=== PATIENT | male | born 1960 | race Caucasian/White ===

== ENCOUNTER 2019-03-12 08:17 | Inpatient (IN) | payer BC, OTHER ==
[2019-03-12] VITALS (7 sets, daily range): BP systolic 101–112; BP diastolic 62–77
[~2019-03-12] VITALS: Ht 172.7 cm; Wt 65.8 kg
--- OUTSIDE RECORDS SUMMARY | 2019-03-12 08:22 | XMS REPORT | Clinical Summary ---
Author Author [facility] Address Unknown Phone Unavailable Care Team Providers Care Tax Accountant Name Role Phone PCP Unavailable Allergies Not on File Medications Not on file Active Problems Not on file Encounters Care Team Description Date Type Specialty Ju Rosales MD 07/19/2018 Office Visit Wound Care Ju Rosales MD 07/11/2018 Office Visit Wound Care Ju Rosales MD 07/04/2018 Office Visit Wound Care Ju Rosales MD 06/27/2018 Office Visit Wound Care after 03/11/2018 Social History Date Tobacco Use Types Packs/Day Years Used Never Assessed Sex Assigned at Date Recorded Not on file Industry Job Start Date Occupation Not on file Not on file Not on file Travel End Travel History Travel Start No recent travel history available. Last Filed Vital Signs Not on file Plan of Treatment Not on file Results Not on fileafter 03/11/2018 Insurance Payer Benefit Subscriber ID Type Phone Address Plan / Group [employer]
--- OUTSIDE RECORDS SUMMARY | 2019-03-12 08:22 | XMS REPORT ---
[facility] Address Unknown Phone Unavailable Care Team Providers Care Financial Institution Manager Name Role Phone Unavailable Unavailable Payers Payer Name Policy Type Policy Number Effective Date Expiration Date Problems This patient has no known problems. Allergies, Adverse Reactions, Alerts Allergy Name Allergy Type Status Severity Reaction(s) Onset Date Inactive Date Treating Clinician Comments No Known Drug Allergies DA Active U 2019-01-18 00:00:00 No Known Allergies DA Active U 2018-12-17 00:00:00 No Known Allergies DA Active U 2018-04-25 00:00:00 Medications This patient has no known medications. Results Test Description Test Time Test Comments Text Results Atomic Results Result Comments - CT LOWER EXTRM W/O C RT 2018-11-20 16:15:00 Patient Name: STEPHEN ARTEAGA GENE Unit No: [id number] EXAMS: CPT CODE: [id number] CT LOWER EXTRM W/[place] [address] [place] SCAN RIGHT ANKLE WITH RECONSTRUCTION DIAGNOSIS: 1. There is internal fixation of fractures of the medial lateral malleolus. There is internal fixation of the medial malleolus fracture with orthopedic screw. There appears to be tenuous relatively immature bridging callus involving the posterior aspect of the medial malleolus fracture which appears to account for less than 10% of fracture surface area. Fracture fragments are well aligned. 2. The lateral malleolus fracture is solidly healed. COMMENT: 0.63 mm axial slices are obtained of the right ankle with reconstruction. Findings are as described above. at 1615 Reported and signed by: Tnude Henry MD CC: Sagar Burns MD Technologist: LOI COFFEY. RT(R) CTDI: DLP: Trnscrpt: 11/20/2018 ([id number]) [email or web address] [facility] NAME: STEPHEN ARTEAGA GENE [address] [facility] PHYS: [place] : 1960 A GE: 58 SEX: M [place] [id number] LOC: Y.RAD PHONE #: [phone] EXAM DATE: 11/20/2018 STATUS: REG CLI FAX #: [phone] RAD #: D/C DT PAGE 1 Signed Report Patient Name: STEPHEN ARTEAGA GENE Unit No: [id number] EXAMS: CPT CODE: [id number] CT LOWER EXTRM W/[place] [address] <Continued> Orig Print D/T: S: 11/20/2018 ([id number]) [facility] NAME: STEPHEN ARTEAGA GENE [address] [facility] PHYS: [place] : 1960 AGE: 58 SEX: M [place] [id number] LOC: Y.RAD PHONE #: [phone] EXAM DATE: 11/20/2018 STATUS: REG CLI FAX #: [phone] RAD #: D/C DT PAGE 2 Signed Report
[2019-03-12 09:25] LABS: BASOPHILS % 0.1 % (0.0-1.0); EOSINOPHILS % 0.1 % (0.0-6.0); HEMATOCRIT 24.6 % (38.2-49.6); HEMOGLOBIN 9.5 g/dL (14.0-18.0); LYMPHOCYTES # (AUTO) 0.7 (1.0-3.2); LYMPHOCYTES % 4.9 % (18.0-39.1); MEAN CORPUSCULAR HEMOGLOBIN 35.8 pg (28-32); MEAN CORPUSCULAR HGB CONC 38.6 g/dL (31-35); MEAN CORPUSCULAR VOLUME 92.8 fL (81-99); MONOCYTES # (AUTO) 1.1 (0.2-0.8); MONOCYTES % 7.2 % (4.4-11.3); NEUTROPHILS # (AUTO) 13.1 (2.1-6.9); PLATELET COUNT 212 x10e3/uL (140-360); RED BLOOD COUNT 2.65 x10e6/uL (4.3-5.7); RED CELL DISTRIBUTION WIDTH 12.4 % (11.7-14.4)
[2019-03-12 09:26] LABS: BILIRUBIN,URINE NEGATIVE (NEGATIVE); CLARITY,URINE SL CLOUDY (CLEAR); COLOR,URINE YELLOW (YELLOW); KETONES,URINE NEGATIVE (NEGATIVE); LEUKOCYTE ESTERASE ,URINE TRACE (NEGATIVE); NITRITE,URINE NEGATIVE (NEGATIVE); PROTEIN,URINE DIPSTICK 1+ (NEGATIVE); URINE UROBILINOGEN 0.2 mg/dL (0.2 - 1)
[2019-03-12 09:31] LABS: INR 0.98; PROTHROMBIN TIME 13.5 seconds (11.9-14.5)
[2019-03-12 09:32] LABS: PARTIAL THROMBOPLASTIN TIME 35.3 seconds (23.8-35.5)
[2019-03-12 09:43] LABS: ALBUMIN 3.6 g/dL (3.5-5.0); ANION GAP 18.7 mmol/L (8-16); CALCIUM 8.9 mg/dL (8.4-10.2); CREATININE, SERUM 1.35 mg/dL (0.72-1.25); POTASSIUM 3.7 mmol/L (3.5-5.1)
[2019-03-12] MEDS ORDERED: MULTIVITAMINS- 12 INJECTION 10 ML, FOLIC ACID MDV 5 MG, THIAMINE HCL INJ 100 MG in SODI... IV ONE (10:00)
[2019-03-12 10:10] LABS: BACTERIA,URINE MODERATE /HPF; EPITHELIAL CELLS,URINE FEW /LPF
--- NOTE | 2019-03-12 10:23 | Diagnostic Imaging Report ---
EXAMINATION: CHEST SINGLE (PORTABLE) INDICATION: Chest pain COMPARISON: None FINDINGS: TUBES and LINES: EKG leads overlie the thorax. LUNGS: The lungs are well inflated. There is left basilar opacity silhouetting the left trisha diaphragm. PLEURA: Left apical pneumothorax measuring up to 5 cm. Moderate left pleural effusion. No right pleural effusion. HEART AND MEDIASTINUM: The cardiomediastinal silhouette is normal in size and contour. BONES AND SOFT TISSUES: No acute fracture or dislocation. UPPER ABDOMEN: No free air under the diaphragm. IMPRESSION: Left hydropneumothorax. Patchy airspace opacities at the left lung base, more likely atelectasis than aspiration or pneumonia. Findings were communicated to Dr. Raj Brock at 10:19 AM on 03/12/2019. Signed by: Sabiha Peng MD on 03/12/2019 10:19 AM
[2019-03-12] MEDS ORDERED: SODIUM CHLORIDE 0.9% 1000ML 1,000 ML IV SCH ×3 (10:30→21:15)
--- NOTE | 2019-03-12 10:30 | NUR ---
FAMILY INTERMITTENTLY AT BEDSIDE, UPDATED ON STATUS. THEY SAID THEY HAD BEEN CALLING THE HOUSE AND HE WAS NOT ANSWERING AND HE TOLD THE NEIGBORS HE WAS TIRED.
[2019-03-12] MEDS ORDERED: DIATRIZOATE MEGL/DIATRIZOA SOD 30 ML BTL PO ONE (10:37)
--- NOTE | 2019-03-12 11:33 | NUR ---
BEDSIDE REPORT TO KENA Mendes. ISAC BAG INFUSING. NORMAL SALINE LITER COMPLETED. PATIENT AWAITING CT CHEST AND CHEST TUBE PLACEMENT. WILL BE PLACED ON HOSPITAL BED
--- NOTE | 2019-03-12 11:33 | NUR ---
REC'D BEDSIDE REPORT FOR CONTUITY OF CARE.
--- NOTE | 2019-03-12 12:43 | Diagnostic Imaging Report ---
EXAM: CT Abdomen and Pelvis WITH intravenous contrast INDICATION: Trauma COMPARISON: Chest radiograph of 03/12/2019 TECHNIQUE: Abdomen and pelvis were scanned utilizing a multidetector helical scanner from the lung base to the pubic symphysis after administration of IV contrast. Coronal and sagittal reformations were obtained. Routine protocol was performed. Scan was performed when during portal venous phase. IV CONTRAST: 100 mL of Isovue-370 ORAL CONTRAST: Gastrografin COMPLICATIONS: None RADIATION DOSE: Total DLP: 633.35 mGy*cm Dose modulation, iterative reconstruction, and/or weight based adjustment of the mA/kV was utilized to reduce the radiation dose to as low as reasonably achievable. FINDINGS: LOWER THORAX: Large left hemopneumothorax with pleural fluid measuring 41 Hounsfield units. There is a minimally displaced fracture of the left lateral seventh rib. There is an overlying hematoma and subcutaneous emphysema extending from the left lateral chest wall through the anterior midline chest wall. Scattered geographic groundglass opacities at the right lung base. No focal consolidation. HEPATOBILIARY: No focal hepatic lesions. No biliary ductal dilatation. The gallbladder appears unremarkable. SPLEEN: No splenomegaly. PANCREAS: No focal masses or ductal dilatation. ADRENALS: No adrenal nodules. KIDNEYS/URETERS: No hydronephrosis, stones, or solid mass lesions. PELVIC ORGANS/BLADDER: The bladder is distended and fluid-filled. PERITONEUM / RETROPERITONEUM: No free air or fluid. LYMPH NODES: No lymphadenopathy. VESSELS: Scattered atherosclerotic calcifications of the abdominal aorta and major branches. GI TRACT: No distention or wall thickening. BONES AND SOFT TISSUES: No suspicious lytic or blastic lesions. IMPRESSION: Large left hemopneumothorax with associated mildly displaced fracture of left lateral seventh rib. Overlying chest wall hematoma and subcutaneous emphysema. No acute traumatic injury in the abdomen or pelvis. Signed by: Sabiha Peng MD on 03/12/2019 12:40 PM
--- NOTE | 2019-03-12 13:05 | Diagnostic Imaging Report ---
EXAM: CT Chest WITH intravenous contrast 03/12/2019 11:54 AM INDICATION: COMPARISON: Chest radiograph of earlier the same day TECHNIQUE: Chest was scanned utilizing a multidetector helical scanner from the lung apex through the level of the adrenal glands following administration of IV contrast. Coronal and sagittal reformations were obtained. Routine protocol was performed. IV CONTRAST: 100mL Isovue 370 RADIATION DOSE: Total DLP: 633.35 mGy*cm. Dose modulation, iterative reconstruction, and/or weight based adjustment of the mA/kV was utilized to reduce the radiation dose to as low as reasonably achievable. COMPLICATIONS: None FINDINGS: LINES/ TUBES: None. LUNGS AND PLEURA: Large left hemopneumothorax with pleural fluid measuring 41 Hounsfield units. Mild centrilobular emphysema at the bilateral upper lobes. Scattered geographic groundglass opacities at the right lung base. No focal consolidation. HEART AND MEDIASTINUM: The thyroid gland is normal. No mediastinal, hilar or axillary lymphadenopathy. The heart is normal in size.. There is no pericardial effusion. Scattered atherosclerotic calcifications of the coronary arteries and thoracic aorta. UPPER ABDOMEN: Please see the report for the concurrently performed abdomen and pelvis CT. BONES: Left lateral sixth and seventh rib mildly displaced fractures. No other acute fracture or dislocation. No suspicious lytic or blastic lesions. SOFT TISSUES: There is a hematoma overlying the left lateral rib fractures and subcutaneous emphysema extending from the left lateral chest wall through the anterior midline chest wall. IMPRESSION: Large left hemopneumothorax with associated mildly displaced fractures of left lateral sixth and seventh ribs. Overlying chest wall hematoma and subcutaneous emphysema. Signed by: Sabiha Peng MD on 03/12/2019 1:02 PM
[2019-03-12 13:44] LABS: AMPHETAMINES SCREEN,URINE NEGATIVE (NEGATIVE); BENZODIAZEPINES SCREEN,URINE NEGATIVE (NEGATIVE); PHENCYCLIDINE SCREEN,URINE NEGATIVE (NEGATIVE)
--- NOTE | 2019-03-12 14:23 | NUR ---
CONSENT SIGNED FOR CHEST TUB INSERTION AND PLACED ON THE CHART
--- NOTE | 2019-03-12 14:50 | NUR ---
CHEST TUBE INSERTION COMPLETE AND PT TOLERATED WELL.
--- NOTE | 2019-03-12 15:34 | Diagnostic Imaging Report ---
EXAMINATION: CHEST SINGLE (PORTABLE) INDICATION: Chest tube placement COMPARISON: Chest CT of earlier the same day, chest radiograph of earlier the same day FINDINGS: TUBES and LINES: Interval placement of left chest tube, with tip projecting over the medial left hemithorax at the T6-7 interspace. LUNGS: The left lung remains partially collapsed. The right lung is well inflated. No focal consolidation or pulmonary edema. PLEURA: Persistent left pneumothorax with interval evacuation of left basal hemothorax. Extent of pneumothorax appears not significantly changed compared to the radiograph of 03/12/2019 at 9:24 AM. HEART AND MEDIASTINUM: The cardiomediastinal silhouette is normal in size and contour. BONES AND SOFT TISSUES: Left lateral sixth and seventh rib fractures seen on CT are not well appreciated on radiograph. UPPER ABDOMEN: No free air under the diaphragm. IMPRESSION: Interval placement of left chest tube and evacuation of left basal hemothorax. Persistent left pneumothorax, not significantly changed. Signed by: Sabiha Peng MD on 03/12/2019 3:31 PM
[2019-03-12] MEDS ORDERED: SODIUM CHLORIDE 0.9% 50ML 50 ML ONE (16:10)
[2019-03-12] MEDS ORDERED: IOPAMIDOL 370 MG/ML 200 ML INFUS..BTL INJ ONE (16:10)
[2019-03-12] MEDS ORDERED: FOLIC ACID 1 MG TAB PO SCH (16:15)
[2019-03-12] MEDS: CEFTRIAXONE SOD 1 GM/NS 50 ML 50 ML IV SCH (16:45)
--- NOTE | 2019-03-12 16:53 | Diagnostic Imaging Report ---
CT BRAIN WO HISTORY: Left upper extremity weakness COMPARISON: None. Technique: Noncontrast axial scans were obtained from skull base to the vertex. Coronal and sagittal reconstructions obtained from the axial data. One or more of the following dose reduction techniques were used: Automated exposure control, adjustment of the mA and/or kV according to patient size, and/or utilization of iterative reconstruction technique. DISCUSSION: Scalp/Skull: Unremarkable. Brain sulci: Mildly prominent. Ventricles: Compensatory dilatation. Extra-axial spaces: No masses or fluid collections. Carotid siphon calcifications are present. Parenchyma: Mild bilateral deep white matter hypodensity is likely chronic microvascular ischemic change. Otherwise, no masses, hemorrhage, or large vascular territory acute infarct. Dural sinuses: No abnormal densities. Sellar/Suprasellar region: Intact. Skull base: Intact. Incidental findings: Mild to moderate mucosal thickening is seen in the bilateral maxillary sinuses, left frontonasal recess, and left anterior ethmoid air cells. The right ocular lens is thinned. IMPRESSION: 1. No acute intracranial abnormalities. 2. Mild supratentorial chronic microvascular ischemic change. Mild generalized cerebral volume loss. Signed by: Dr. Lv Marroquin M.D. on 03/12/2019 4:49 PM
[2019-03-12] MEDS ORDERED: ONDANSETRON HCL INJ 2MG/ML 2ML 2 MG/ML VIAL IV PRN (17:15)
--- OUTSIDE RECORDS SUMMARY | 2019-03-12 17:27 | XMS REPORT | Clinical Summary ---
Author Author [facility] Address Unknown Phone Unavailable Care Team Providers Care Product Safety Expert Name Role Phone PCP Unavailable Allergies Not [...]
[2019-03-12] MEDS: THIAMINE HCL 100 MG TAB PO SCH (17:32)
[2019-03-12] MEDS: CHLORDIAZEPOXIDE 100 MG AMP IV SCH (17:33)
--- NOTE | 2019-03-12 17:34 | NUR ---
PATIENT CALLING ON THE PHONE DEMANDING INFORMATION, INFORMED CANNOT GIVE ANY INFORMATION OVER THE PHONE DUE SINCE I CANNOT VERIFY WHO SHE IS OVER THE PHONE. PATIENT VERY RUDE ON THE PHONE STATES SHE IS GOING TO REPORT ME SINCE I WONT GIVE HER INFORMATION OVER THE PHONE. PER ANDI, DR AGUIAR STATES TO NOT GIVE INFORMATION ON PATIENT TO , SHE IS DIVORSING PATIENT AND NEGLECTING PATIENT AT HOME. APTIENT WAS BROUGHT IN WITH EXCORIATION, WOUNDS ON BOTTOM, LARGE BRUISE TO LEFT SIDE OF CHEST WITH HAD TO HAVE CHEST TUBE DUE TO HEMOPEUMO THORAX. PATIENT IN VERY POOR CONDITION, CASE MANAGEMENT CONSULTED FOR NEGLECT AND ABUSE OF PATIENT BY PRODUCT DEMONSTRATOR WHO IS THE .
--- NOTE | 2019-03-12 17:37 | History and Physical ---
CHIEF COMPLAINT: The patient found lying on the floor. HISTORY OF PRESENT ILLNESS: This is a 58-year-old white man, who was brought to [facility] room via emergency medical services because he was found lying on his garage floor for unknown time. In the emergency room, the patient had chest x-ray done, which revealed left lower lobe airspace opacity as well as likely left-sided rib fractures. The patient subsequently underwent a CT of the chest with contrast that revealed a large left hemopneumothorax with mildly displaced fractures of the left 6th and 7th ribs. The patient underwent successful left-sided tube thoracostomy in the emergency room. The patient was also found to have white blood cell count of 15,000 with 87% segmenters. His hemoglobin 9.5 g/dL. The patient was found to be a BUN and creatinine of 33 and 1.35 respectively. Potassium 3.7, sodium 107, serum chloride was 69. Lactic acid was 15.7. The patient's creatine kinase level was elevated at 28,283. The patient's troponin I was normal at 0.017. The patient is found to have AST and ALT of 705 and 112 respectively. The patient's urine drug screen was negative. According to the mother and the present, the patient drinks alcohol in the form beer on a regular basis. The states he drinks beer all throughout the day. The patient be admitted to the intensive care unit for further evaluation and treatment. REVIEW OF SYSTEMS: GENERAL: The patient has lost approximately 15 to 20 pounds in the last few months. No fever or chills. HEENT: No headaches. No visual changes. CARDIOVASCULAR/RESPIRATORY. The patient complains of cough and complains of left-sided rib cage pain. GI: Nausea, vomiting, or constipation. : No UTI or BPH symptoms. NEUROMUSCULAR: No limb weakness or numbness. ALLERGIES: NO KNOWN DRUG ALLERGIES. PAST MEDICAL HISTORY: 1. Chronic alcoholism. 2. Tobacco abuse. 3. Hypertensive heart disease. 4. Alcoholic peripheral neuropathy. PAST SURGICAL HISTORY: Right ankle open reduction and fixation twice (1st in 2018 and 2nd a month ago). SOCIAL HISTORY: He is , lives with his . 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 He smokes tobacco heavily and drinks alcohol form beer all throughout the day. MEDICATIONS: Lisinopril/hydrochlorothiazide 20 mg/25 once daily. FAMILY HISTORY: Noncontributory. FAMILY HISTORY: Father had prostate cancer and his father also had diabetes mellitus. PHYSICAL EXAMINATION: GENERAL: He is awake, semi-alert. His altered mentation is dull. His and mother at bedside and they provide most of the history. VITAL SIGNS: 5 feet 8 inches, weight is 125 pounds, BMI is 20. Blood pressure 108/68, pulse 84, respiratory rate is 18, oxygen 98%, and temperature 98.6. INTEGUMENT: Skin is warm and dry. Slight pallor. No jaundice or diaphoresis. The patient has stage II sacral and buttock ulcers. The patient has a widespread wound on sacral/buttock ulcer, it appears to be stage II. HEENT: Clear. Moist mucous membranes. NECK: Supple. CARDIOVASCULAR: Distant heart sounds. Regular rhythm. LUNGS: The patient has a left-sided chest tube in place. He has rhonchi in bilateral lung perez. ABDOMEN: Soft. Normal bowel sounds. EXTREMITIES: No edema deformity. He has wounds and abrasions in his bilateral upper extremities as well as bilateral feet. NEUROLOGIC: Intact. No gross deficits appreciated. DIAGNOSES: 1. Sepsis, secondary to left-sided pneumonia. 2. Hyponatremia. 3. Chronic alcoholism. 4. Rhabdomyolysis. 5. Acute renal failure, secondary to acute tubular necrosis. 6. Tobacco abuse. 7. Left hemopneumothorax, secondary to displaced rib fractures. 8. Status post left tube thoracostomy placement. 9. Left 6th and 7th rib fractures. PLAN: 1. Intravenous fluids. 2. Follow electrolytes and renal function. 3. Intravenous antibiotics. 4. Follow creatine kinase level. 5. We will prescribe scheduled oral Librium to help offset acute alcohol withdrawal symptoms. 6. We will supplement the patient with folic acid, and thiamine since he is a chronic alcoholic. 7. Admit the patient to intensive care unit, so we he can followed closely overnight since he has profound hyponatremia. 8. Wound Care consult for the patient's sacral/buttock wounds. I spent 75 minutes in the care of this intensive care unit patient. MD ALLEN Clinton/ANNE /[id number] FELISHA
[2019-03-12] MEDS ORDERED: CHLORDIAZEPOXIDE HCL 25 MG CAP PO SCH (18:00)
--- NOTE | 2019-03-12 18:22 | NUR ---
called and spoke with dr. zamora for new consult.
[2019-03-12] MEDS: AZITHROMYCIN 500MG/NS 250 ML 250 ML IV SCH (18:40)
--- NOTE | 2019-03-12 18:46 | NUR ---
DR. MENDEZ IN WITH PT AT THIS TIME
--- NOTE | 2019-03-12 19:15 | NUR ---
Received from ER via stretcher, awake and alert. multiple bruises in various states of healing noted to arms legs and torso. Suspected DTI to Bilateral elbows, suspected DTI to Bilateral heels, Suspected DTI with small stage II open areas to sacrum, suspected DTI with stage II open area to left hip. Voided small amount in urinal and still feels need to void. Urinary catheter inserted with 960 cc dark sam urine out.
--- NOTE | 2019-03-12 19:38 | NUR ---
Consult called to Dr. Perez, Dr Woodard returned call and orders for stat BMP received
[2019-03-12 20:21] LABS: ANION GAP 14.2 mmol/L (8-16); BLOOD UREA NITROGEN 28 mg/dL (7-26); BUN/CREATININE RATIO 35 (6-25); CALCIUM 7.9 mg/dL (8.4-10.2); CARBON DIOXIDE 21 mmol/L (22-29); CHLORIDE 82 mmol/L (98-107); EST GLOMERULAR FILTRATION RATE > 60 ML/MIN (60-); GLUCOSE 94 mg/dL (74-118); POTASSIUM 3.2 mmol/L (3.5-5.1)
[2019-03-12 20:25] LABS: SODIUM 114 mmol/L (136-145)
--- NOTE | 2019-03-12 20:33 | NUR ---
call placed for Dr Woodard regarding bmp results, awaiting return call
--- NOTE | 2019-03-12 21:03 | NUR ---
No return call received from Dr Woodard, second call placed at this time
[2019-03-12] MEDS ORDERED: DESMOPRESSIN ACETATE 4 MCG/ML VIAL IV ONE (21:15)
--- NOTE | 2019-03-12 21:15 | NUR ---
DR MORALES RETURNED CALL, NEW ORDERS RECEIVED
[2019-03-12] MEDS ORDERED: DEXTROSE 5% 500 ML IV ONE (22:00)
[2019-03-12] MEDS ORDERED: POTASSIUM CHLORIDE 20MEQ/100ML 200 ML IV ONE (22:00)
[2019-03-13] VITALS (26 sets, daily range): BP systolic 83–115; BP diastolic 48–65
[2019-03-13 01:02] LABS: ANION GAP 12.3 mmol/L (8-16); BLOOD UREA NITROGEN 23 mg/dL (7-26); BUN/CREATININE RATIO 31 (6-25); CALCIUM 7.8 mg/dL (8.4-10.2); CARBON DIOXIDE 23 mmol/L (22-29); CHLORIDE 83 mmol/L (98-107); CREATININE, SERUM 0.74 mg/dL (0.72-1.25); EST GLOMERULAR FILTRATION RATE > 60 ML/MIN (60-); GLUCOSE 138 mg/dL (74-118); POTASSIUM 3.3 mmol/L (3.5-5.1)
[2019-03-13 01:06] LABS: SODIUM 115 mmol/L (136-145)
--- NOTE | 2019-03-13 01:14 | NUR ---
LAB RESULTS REPORTED TO DR GARCIA, NEW ORDERS RECEIVED
[2019-03-13] MEDS: DEXTROSE 5% 1,000 ML IV SCH ×3 (01:15→03:35)
--- NOTE | 2019-03-13 02:20 | Consultation ---
DATE OF CONSULTATION: Pulmonary Consultation REASON FOR THE CONSULT: Chest tube management. HISTORY OF PRESENT ILLNESS: Mr. Whaley is a 58-year-old male. He does not remember that how he ended up in the emergency room, however, he was found on his garage floor for unknown time. He had a chest x-ray done, which revealed large right-sided effusion and pneumothorax. The patient underwent a large left hydropneumothorax. The patient underwent a chest tube placement. He has a history of alcohol use and smoking. Family is at the bedside. The patient is awake, alert, following commands. Chest x-ray is improved after chest tube placement. REVIEW OF SYSTEMS: GENERAL: Denies any fever or chills and denies any head trauma. ENT: Denies any earache. CVS: Denies any severe chest pain, shortness of breath. Rest of the review of systems are negative except as noted in the HPI. PAST MEDICAL HISTORY: Alcohol abuse, tobacco use, hypertension. PAST SURGICAL HISTORY: Right ankle open reduction and internal fixation twice. FAMILY AND SOCIAL HISTORY: He is , lives with his . 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 He smokes and drinks heavily. PHYSICAL EXAMINATION: VITAL SIGNS: Temperature 98.6, pulse of 81, blood pressure 111/67, respiratory rate of 18. HEENT: Head is atraumatic, normocephalic. NECK: Supple. CHEST: Bruise on the left side and has a left-sided chest tube. Both side air entry is better. ABDOMEN: Soft, nontender. EXTREMITIES: No pedal edema. NEUROLOGIC: Awake and alert. LABORATORY DATA: [place] [address], hemoglobin 9.5, platelets 212. Chemistry; sodium 107, potassium 3.7, chloride 69. BUN 32, creatinine 1.35. CK 28,283, CK-MB 487, total bilirubin 1.7, AST 705, ALT 112. ASSESSMENT/PLAN: Mr. Whaley is a 58-year-old male, who presented to the emergency room with complaints after a fall resulting in hydropneumothorax status post chest tube placement. The patient has sodium of 107, possibility of seizure from low sodium. CURRENT PROBLEMS: 1. Hyponatremia. 2. Chronic alcoholism. 3. Status post fall. 4. Hydropneumothorax. 5. Left 6th and 7th rib fracture. PLAN: 1. The patient will continue to have the chest tube. I will keep the chest tube. It has drained, almost 1200 mL of ya blood. 2. The patient is in rhabdomyolysis. IV hydration will be continued. 3. Recommend consulting Nephrology for severe hyponatremia. IV hydration should be done cautiously for over-correction. Hence, we will need Nephrology input. Critical care time spent, 50 minutes. MD CARYL Duran/ANNE /[id number]
[2019-03-13] MEDS: CHLORDIAZEPOXIDE 100 MG AMP IV SCH ×2 (03:34)
[2019-03-13] MEDS: CEFTRIAXONE SOD 1 GM/NS 50 ML 50 ML IV SCH ×2 (04:11→16:32)
[2019-03-13 05:22] LABS: BASOPHILS % 0.1 % (0.0-1.0); EOSINOPHILS % 0.4 % (0.0-6.0); HEMATOCRIT 21.4 % (38.2-49.6); LYMPHOCYTES # (AUTO) 0.7 (1.0-3.2); LYMPHOCYTES % 6.3 % (18.0-39.1); MEAN CORPUSCULAR HEMOGLOBIN 35.1 pg (28-32); MEAN CORPUSCULAR HGB CONC 37.4 g/dL (31-35); MEAN CORPUSCULAR VOLUME 93.9 fL (81-99); MONOCYTES # (AUTO) 0.8 (0.2-0.8); MONOCYTES % 7.4 % (4.4-11.3); NEUTROPHILS # (AUTO) 9.6 (2.1-6.9); NEUTROPHILS % 85.1 % (38.7-80.0); PLATELET COUNT 183 x10e3/uL (140-360); RED BLOOD COUNT 2.28 x10e6/uL (4.3-5.7); RED CELL DISTRIBUTION WIDTH 12.6 % (11.7-14.4)
[2019-03-13 05:52] LABS: ALANINE AMINOTRANSFERASE 94 IU/L (0-55); ALBUMIN 2.5 g/dL (3.5-5.0); ALBUMIN/GLOBULIN RATIO 0.9 (0.8-2.0); ALKALINE PHOSPHATASE 73 IU/L (40-150); ANION GAP 11.4 mmol/L (8-16); BLOOD UREA NITROGEN 19 mg/dL (7-26); BUN/CREATININE RATIO 29 (6-25); CALCIUM 7.8 mg/dL (8.4-10.2); CARBON DIOXIDE 24 mmol/L (22-29); CHLORIDE 82 mmol/L (98-107); CREATININE, SERUM 0.66 mg/dL (0.72-1.25); EST GLOMERULAR FILTRATION RATE > 60 ML/MIN (60-); GLUCOSE 153 mg/dL (74-118); MAGNESIUM 2.1 MG/DL (1.3-2.1); POTASSIUM 3.4 mmol/L (3.5-5.1)
[2019-03-13 06:00] LABS: CREATINE KINASE 7881 IU/L (30-200)
[2019-03-13 06:01] LABS: SODIUM 114 mmol/L (136-145)
[2019-03-13] MEDS ORDERED: POTASSIUM CHLORIDE 20MEQ/15ML UDC PO ONE (06:15)
--- NOTE | 2019-03-13 07:47 | Diagnostic Imaging Report ---
EXAMINATION: CHEST SINGLE (PORTABLE) INDICATION: Pneumothorax COMPARISON: Chest radiograph 03/12/2019. FINDINGS: TUBES and LINES: Left-sided chest tube in unchanged position. LUNGS: Unchanged patchy opacities in the left greater than right lung bases. No new consolidation. No evidence of pulmonary edema. PLEURA: Interval decrease in size of left basilar pneumothorax. HEART AND MEDIASTINUM: Unremarkable cardiomediastinal silhouette. Atherosclerotic calcification of the aortic arch. BONES AND SOFT TISSUES: Left lateral sixth and seventh rib fractures seen on CT are not well appreciated on radiograph. Small amount of subcutaneous air along the left lateral chest wall. UPPER ABDOMEN: No free air under the diaphragm. IMPRESSION: Left-sided chest tube with interval decrease in size of left basilar pneumothorax. Signed by: Dr. Rajiv Parkinson MD on 03/13/2019 7:43 AM
[2019-03-13] MEDS ORDERED: THIAMINE HCL INJ 100 MG in SODIUM CHLORIDE 0.9% 50ML 50 ML IV SCH (09:00)
[2019-03-13] MEDS ORDERED: THIAMINE HCL INJ 100 MG/ML 2ML VIAL IV SCH (09:00)
[2019-03-13 09:29] LABS: ANION GAP 8.8 mmol/L (8-16); BLOOD UREA NITROGEN 16 mg/dL (7-26); BUN/CREATININE RATIO 26 (6-25); CALCIUM 7.8 mg/dL (8.4-10.2); CARBON DIOXIDE 25 mmol/L (22-29); CHLORIDE 82 mmol/L (98-107); CREATININE, SERUM 0.62 mg/dL (0.72-1.25); EST GLOMERULAR FILTRATION RATE > 60 ML/MIN (60-); GLUCOSE 155 mg/dL (74-118); POTASSIUM 3.8 mmol/L (3.5-5.1)
[2019-03-13] MEDS ORDERED: POTASSIUM CHLORIDE 10MEQ EA PO ONE (09:30)
[2019-03-13 09:31] LABS: SODIUM 112 mmol/L (136-145)
[2019-03-13] MEDS: SODIUM CHLORIDE 0.9% 1000ML 1,000 ML IV SCH (09:51)
[2019-03-13] MEDS: THIAMINE HCL 100 MG TAB PO SCH (10:26)
--- NOTE | 2019-03-13 10:42 | NUR ---
WOUND CARE INITIAL CONSULTATION. 58 YEAR OLD MALE ADMITTED TO [facility] WITH DX OF SEVERE HYPONATREMIA WITH LETHARGY AND RHABDOMYOLYSIS. HEAD TO TOE SKIN ASSESSMENT PERFORMED TODAY, PT STATES HE HAD A FALL AT HOME FEW DAYS AGO. UPON ASSESSMENT PT PRESENTS WITH A 6X2X0.1CM 100% GRANULAR ABRASION TO LEFT ELBOW. LEFT LATERAL AC AND WRIST PRESENT WITH A HEALING 2X1CM ABRASION. RIGHT ELBOW PRESENTS WITH A 90D23TT OF DISCOLORATION AND SOME AREAS OF DTI ARE PRESENT. 1X1 CM HEALING ABRASION TO LEFT KNEE. BILATERAL HEELS PRESENT WITH BLANCHABLE REDNESS. [id number] STAGE II PRESSURE ULCER IS NOTED TO SACRUM AND BILATERAL BUTTOCKS. CHEST TUBE TO RIGHT CHEST. PT EDUCATED ON PLAN OF CARE, TREATMENT AND PRESSURE RELIEF TO THE AFFECTED AREAS. LABS: WBC: 11.24 GLUCOSE: 153 ALB: 2.5 RECOMMENDATIONS: PLACE PT ON ALTERNATING LOW AIR LOSS MATTRESS. PROVIDE PT WITH BILATERAL HEEL PROTECTORS AND PILLOW SUSPENSIONS TURN PT EVERY TWO HOURS AND PRN. CLEAN LEFT ELBOW WITH NS, APPLY BACTROBAN AND COVER WITH XEROFORM GAUZE, 4X4 GAUZE, KERLIX AND TAPE. CHANGE DRESSING DAILY. APPLY BACTROBAN TO LEFT LATERAL AC, LEFT WRIST, AND LEFT KNEE ABRASIONS, LEAVE OPEN TO AIR AND MONITOR DAILY. APPLY A FOAM DRESSING IF NEEDED. APPLY VENELEX TO RIGHT ELBOW AND COVER WITH FOAM DRESSING. CHANGE DAILY. APPLY ALLEVYN HEEL FOAM TO BILATERAL HEELS AND MONITOR DAILY. APPLY VENELEX OINTMENT BID TO SACRUM AND BILATERAL BUTTOCKS BID AND COVER WITH FOAM DRESSING. THANKS FOR THIS CONSULTATION. Addendum: 03/13/19 at 1103 by Jeane Kee RN Amended: Links added.
[2019-03-13] MEDS: CHLORDIAZEPOXIDE HCL 25 MG CAP PO SCH ×2 (12:10→18:52)
[2019-03-13 16:05] LABS: BLOOD UREA NITROGEN 13 mg/dL (7-26); BUN/CREATININE RATIO 22 (6-25); CALCIUM 7.9 mg/dL (8.4-10.2); CARBON DIOXIDE 24 mmol/L (22-29); CHLORIDE 84 mmol/L (98-107); CREATININE, SERUM 0.58 mg/dL (0.72-1.25); EST GLOMERULAR FILTRATION RATE > 60 ML/MIN (60-); GLUCOSE 132 mg/dL (74-118)
[2019-03-13 16:07] LABS: SODIUM 116 mmol/L (136-145)
[2019-03-13] MEDS: AZITHROMYCIN 500MG/NS 250 ML 250 ML IV SCH (17:36)
[2019-03-13] MEDS: FOLIC ACID 1 MG TAB PO SCH (18:52)
--- NOTE | 2019-03-13 22:22 | Consultation ---
DATE OF CONSULTATION: REASON FOR CONSULT: Severe hyponatremia and rhabdomyolysis. HISTORY OF PRESENT ILLNESS: This is a 58-year-old male, who was found down by his family. The patient had right-sided effusion and pneumothorax. PAST MEDICAL HISTORY: Severe alcohol abuse at least 10 beers a day, tobacco abuse, and hypertension. PAST SURGICAL HISTORY: Right ankle open reduction and internal fixation twice. 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 Drinks heavily. REVIEW OF SYSTEMS: Unable to get from the patient. PHYSICAL EXAMINATION: GENERAL: Alert, goes back to sleep quickly. HEENT: Pupils are equal and reactive to light and accommodation. NECK: No JVD. No bruit. LUNGS: No rhonchi. No rales. HEART: Regular rate and rhythm. No S3, no S4. ABDOMEN: Nontender and nondistended. No hepatomegaly or splenomegaly. EXTREMITIES: No clubbing, no cyanosis, no edema. NEUROLOGICAL: Cranial nerves II through XII grossly intact. Sensation and motor intact. VITAL SIGNS: Blood pressure 99/61. LABORATORY DATA: White count 11.2, hemoglobin 8, and hematocrit 21.4. Sodium now at 112, chloride 82, glucose 155, and albumin 2.5. Urinalysis, positive blood. Chest x-ray, left-sided chest tube, abdominal CT. Interval placement of left chest tube. Upper abdomen, no free air. ASSESSMENT AND PLAN: 1. Severe hyponatremia. This is most likely secondary to beer potomania. The patient is currently on normal saline, we will increase his saline and continue checking his labs that is most likely secondary to alcohol. We will check also serum osmolality, serum uric acid, and urine osmolality. 2. Severe malnutrition with an albumin of 2.5, this most likely secondary to alcohol. 3. AST and ALT are up again that is another sign of alcohol use. 4. CPK, status post fall with a CPK of 7881. Currently on IV fluids. We will continue volume repletion. Elliot Mantilla MD MA/ANNE /[id number]
[2019-03-14] VITALS (24 sets, daily range): BP systolic 88–124; BP diastolic 49–105
[2019-03-14] MEDS: CHLORDIAZEPOXIDE HCL 25 MG CAP PO SCH ×4 (00:11→21:48)
[2019-03-14] MEDS: SODIUM CHLORIDE 0.9% 1000ML 1,000 ML IV SCH ×2 (01:38→19:07)
[2019-03-14] MEDS: CEFTRIAXONE SOD 1 GM/NS 50 ML 50 ML IV SCH ×2 (04:15→16:27)
--- NOTE | 2019-03-14 05:00 | NUR ---
Cleaned for mod soft brown stool.
[2019-03-14 05:20] LABS: BASOPHILS % 0.1 % (0.0-1.0); EOSINOPHILS # (AUTO) 0.1 (0.0-0.4); LYMPHOCYTES # (AUTO) 0.8 (1.0-3.2); LYMPHOCYTES % 9.1 % (18.0-39.1); MEAN CORPUSCULAR HEMOGLOBIN 35.5 pg (28-32); MEAN CORPUSCULAR HGB CONC 36.4 g/dL (31-35); MEAN CORPUSCULAR VOLUME 97.6 fL (81-99); MONOCYTES # (AUTO) 0.7 (0.2-0.8); NEUTROPHILS # (AUTO) 6.9 (2.1-6.9); NEUTROPHILS % 80.8 % (38.7-80.0); PLATELET COUNT 183 x10e3/uL (140-360); RED BLOOD COUNT 2.11 x10e6/uL (4.3-5.7); RED CELL DISTRIBUTION WIDTH 13.1 % (11.7-14.4)
[2019-03-14 05:28] LABS: HEMATOCRIT 20.6 % (38.2-49.6); HEMOGLOBIN 7.5 g/dL (14.0-18.0)
[2019-03-14 05:32] LABS: ALANINE AMINOTRANSFERASE 81 IU/L (0-55); ALBUMIN 2.3 g/dL (3.5-5.0); ALBUMIN/GLOBULIN RATIO 0.9 (0.8-2.0); ALKALINE PHOSPHATASE 70 IU/L (40-150); ANION GAP 10.8 mmol/L (8-16); BLOOD UREA NITROGEN 8 mg/dL (7-26); BUN/CREATININE RATIO 15 (6-25); CARBON DIOXIDE 25 mmol/L (22-29); CHLORIDE 89 mmol/L (98-107); CREATINE KINASE 3885 IU/L (30-200); CREATININE, SERUM 0.55 mg/dL (0.72-1.25); EST GLOMERULAR FILTRATION RATE > 60 ML/MIN (60-); GLUCOSE 103 mg/dL (74-118); POTASSIUM 3.8 mmol/L (3.5-5.1); SODIUM 121 mmol/L (136-145)
--- NOTE | 2019-03-14 07:23 | Diagnostic Imaging Report ---
Examination: Single AP view of the chest. COMPARISON: 03/13/2019 INDICATION: Chest tube placement, pneumonia DISCUSSION: Left chest tube is unchanged in position. Trace residual apical pneumothorax. Hazy opacities in the left lower lung compatible with contusion/atelectasis. Right lung is grossly clear. Stable cardiomediastinal contour with atherosclerotic calcification of the aortic arch. Multiple left-sided rib fractures seen to better advantage on comparison CT 03/12/2019. IMPRESSION: Stable left-sided chest tube with trace residual pneumothorax. Persistent left lower lung zone opacities compatible with contusion and/or atelectasis in the setting of overlying rib fractures. Signed by: Dr. Sagar Cuenca M.D. on 03/14/2019 7:20 AM
[2019-03-14] MEDS: MUPIROCIN 2% OINT 22 GM TUBE TOP SCH (09:00)
[2019-03-14] MEDS: BALSAM PERU/CASTOR OIL 60 GM OINT...G. TP SCH (09:00)
[2019-03-14] MEDS: FOLIC ACID 1 MG TAB PO SCH ×2 (10:30→17:00)
[2019-03-14] MEDS: THIAMINE HCL 100 MG TAB PO SCH (10:30)
--- NOTE | 2019-03-14 10:50 | NUR ---
ASSESSMENT: Spiritual concern Pt's mother hopeful concerning son's illness. Pt's mother describes signs of improvement. Intervention: Provided hospitality and information on how to reach roustabout head, if needed. Outcome: Pt's mother invited roustabout head to continue to visit. Will follow as able. SAMANTHA COLE Graphic Art Sales Representative Spiritual Care Department O: [phone] Pager: [phone] ([phone] number calling from)
[2019-03-14] MEDS: NYSTATIN 100,000 UNITS/GM CRM 30GM TUBE TOP SCH ×2 (14:03→17:00)
[2019-03-14] MEDS: AZITHROMYCIN 500MG/NS 250 ML 250 ML IV SCH ×2 (17:30→20:00)
[2019-03-14 18:08] LABS: OSMOLALITY,SERUM OSMOMETER 241 mOsmol/kg (275-295)
--- NOTE | 2019-03-14 18:20 | NUR ---
while discussing pt care with patients sister, pts estranged listening over sisters shoulder. was asked to return to room so i could discuss pt care with his sister. yelled out "I am his " informed pts she was not on his list of authorization for information sheet. pts went back in room crying, yelling out that she had never heard of such and grabbed personal belongings and stormed off of ICU unit.
[2019-03-15] VITALS (25 sets, daily range): BP systolic 97–136; BP diastolic 52–79
[2019-03-15] MEDS: SODIUM CHLORIDE 0.9% 1000ML 1,000 ML IV SCH ×2 (02:55→20:09)
[2019-03-15] MEDS: CEFTRIAXONE SOD 1 GM/NS 50 ML 50 ML IV SCH ×2 (04:30→20:09)
[2019-03-15 05:02] LABS: BASOPHILS % 0.1 % (0.0-1.0); EOSINOPHILS # (AUTO) 0.1 (0.0-0.4); EOSINOPHILS % 0.9 % (0.0-6.0); HEMATOCRIT 20.1 % (38.2-49.6); HEMOGLOBIN 7.2 g/dL (14.0-18.0); LYMPHOCYTES # (AUTO) 0.7 (1.0-3.2); LYMPHOCYTES % 7.6 % (18.0-39.1); MEAN CORPUSCULAR HEMOGLOBIN 35.6 pg (28-32); MEAN CORPUSCULAR HGB CONC 35.8 g/dL (31-35); MEAN CORPUSCULAR VOLUME 99.5 fL (81-99); MONOCYTES # (AUTO) 0.8 (0.2-0.8); MONOCYTES % 9.1 % (4.4-11.3); NEUTROPHILS # (AUTO) 7.3 (2.1-6.9); NEUTROPHILS % 81.6 % (38.7-80.0); PLATELET COUNT 171 x10e3/uL (140-360); RED BLOOD COUNT 2.02 x10e6/uL (4.3-5.7); RED CELL DISTRIBUTION WIDTH 13.4 % (11.7-14.4)
[2019-03-15 05:23] LABS: ALANINE AMINOTRANSFERASE 85 IU/L (0-55); ALBUMIN 2.3 g/dL (3.5-5.0); ALBUMIN/GLOBULIN RATIO 0.8 (0.8-2.0); ALKALINE PHOSPHATASE 67 IU/L (40-150); ANION GAP 10.7 mmol/L (8-16); BLOOD UREA NITROGEN 6 mg/dL (7-26); BUN/CREATININE RATIO 10 (6-25); CALCIUM 8.3 mg/dL (8.4-10.2); CARBON DIOXIDE 26 mmol/L (22-29); CHLORIDE 93 mmol/L (98-107); CREATINE KINASE 4187 IU/L (30-200); CREATININE, SERUM 0.59 mg/dL (0.72-1.25); EST GLOMERULAR FILTRATION RATE > 60 ML/MIN (60-); GLUCOSE 103 mg/dL (74-118); POTASSIUM 3.7 mmol/L (3.5-5.1); SODIUM 126 mmol/L (136-145)
[2019-03-15] MEDS: CHLORDIAZEPOXIDE HCL 25 MG CAP PO SCH ×2 (06:06→18:15)
[2019-03-15] MEDS: FOLIC ACID 1 MG TAB PO SCH ×2 (08:02→18:12)
[2019-03-15] MEDS: THIAMINE HCL 100 MG TAB PO SCH (08:02)
[2019-03-15] MEDS: NYSTATIN 100,000 UNITS/GM CRM 30GM TUBE TOP SCH ×2 (08:02→18:12)
[2019-03-15] MEDS: MUPIROCIN 2% OINT 22 GM TUBE TOP SCH (08:02)
[2019-03-15] MEDS: BALSAM PERU/CASTOR OIL 60 GM OINT...G. TP SCH (08:02)
[2019-03-15] MEDS ORDERED: SODIUM CHLORIDE 0.9% 250ML 250 ML IV ONE (09:30)
[2019-03-15] MEDS ORDERED: BISACODYL 10 MG SUPP PR ONE (09:30)
--- NOTE | 2019-03-15 10:21 | Diagnostic Imaging Report ---
EXAMINATION: CHEST SINGLE (PORTABLE) INDICATION: Left chest tube. COMPARISON: Chest radiograph 03/14/2019. FINDINGS: TUBES and LINES: Left-sided chest tube overlies the left upper mid hemithorax but appears slightly retracted compared to the prior study. LUNGS: Unchanged patchy opacities in the left greater than right lung bases. No new consolidation. No evidence of pulmonary edema. Central vascular congestion. PLEURA: Persistent trace left pneumothorax. HEART AND MEDIASTINUM: Unremarkable cardiomediastinal silhouette. Atherosclerotic calcification of the aortic arch. BONES AND SOFT TISSUES: Left lateral sixth and seventh rib fractures seen on CT are not well appreciated on radiograph. Small amount of subcutaneous air along the left lateral chest wall. UPPER ABDOMEN: No free air under the diaphragm. IMPRESSION: Left-sided chest tube overlies the left upper mid hemithorax but appears slightly retracted compared to the prior study. Unchanged trace left pneumothorax. Persistent left lower lung zone opacities, which may represent contusion or atelectasis. Signed by: Dr. Rajiv Parkinson MD on 03/15/2019 10:18 AM
--- NOTE | 2019-03-15 14:27 | NUR ---
ORDERS FOR LTAC EVAL CHOICE LETTER GIVEN AND PT CHOSE [facility] MOT INITIATED AND PLACED ON FRONT OF CHART YOVANI GARAY WITH [employer] NOTIFIED OF CONSULT PLAN TRANSFER TO [facility] WHEN APPROVED BY INSURANCE
[2019-03-15] MEDS ORDERED: SODIUM CHLORIDE 0.9% 250ML 250 ML ONE (15:01)
[2019-03-15] MEDS: FAMOTIDINE 20 MG/2 ML VIAL IV SCH ×2 (18:12→18:17)
[2019-03-16] VITALS (24 sets, daily range): BP systolic 112–138; BP diastolic 64–124
[2019-03-16 05:39] LABS: ALANINE AMINOTRANSFERASE 76 IU/L (0-55); ALBUMIN 2.2 g/dL (3.5-5.0); ALBUMIN/GLOBULIN RATIO 0.8 (0.8-2.0); ALKALINE PHOSPHATASE 67 IU/L (40-150); ANION GAP 12.5 mmol/L (8-16); BLOOD UREA NITROGEN 6 mg/dL (7-26); BUN/CREATININE RATIO 11 (6-25); CALCIUM 8.2 mg/dL (8.4-10.2); CARBON DIOXIDE 24 mmol/L (22-29); CHLORIDE 97 mmol/L (98-107); CREATININE, SERUM 0.54 mg/dL (0.72-1.25); EST GLOMERULAR FILTRATION RATE > 60 ML/MIN (60-); GLUCOSE 123 mg/dL (74-118); POTASSIUM 3.5 mmol/L (3.5-5.1); SODIUM 130 mmol/L (136-145)
[2019-03-16 05:55] LABS: ANION GAP 11.5 mmol/L (8-16); BLOOD UREA NITROGEN 6 mg/dL (7-26); BUN/CREATININE RATIO 11 (6-25); CARBON DIOXIDE 23 mmol/L (22-29); CHLORIDE 97 mmol/L (98-107); CREATINE KINASE 2172 IU/L (30-200); CREATININE, SERUM 0.55 mg/dL (0.72-1.25); EST GLOMERULAR FILTRATION RATE > 60 ML/MIN (60-); GLUCOSE 120 mg/dL (74-118); MAGNESIUM 1.8 MG/DL (1.3-2.1); POTASSIUM 3.5 mmol/L (3.5-5.1); SODIUM 128 mmol/L (136-145)
[2019-03-16] MEDS: SODIUM CHLORIDE 0.9% 1000ML 1,000 ML IV SCH ×2 (06:19→16:12)
[2019-03-16] MEDS: CEFTRIAXONE SOD 1 GM/NS 50 ML 50 ML IV SCH ×2 (08:17→15:38)
[2019-03-16] MEDS: FAMOTIDINE 20 MG/2 ML VIAL IV SCH ×2 (08:17→16:12)
[2019-03-16] MEDS: FOLIC ACID 1 MG TAB PO SCH ×2 (08:17→16:12)
[2019-03-16] MEDS: THIAMINE HCL 100 MG TAB PO SCH (08:17)
[2019-03-16] MEDS: MUPIROCIN 2% OINT 22 GM TUBE TOP SCH (08:17)
[2019-03-16] MEDS: CHLORDIAZEPOXIDE HCL 25 MG CAP PO SCH ×2 (08:17→16:12)
[2019-03-16] MEDS: BALSAM PERU/CASTOR OIL 60 GM OINT...G. TP SCH (08:18)
[2019-03-16] MEDS: NYSTATIN 100,000 UNITS/GM CRM 30GM TUBE TOP SCH ×2 (08:18→16:12)
[2019-03-16 09:02] LABS: BASOPHILS % 0.1 % (0.0-1.0); EOSINOPHILS # (AUTO) 0.1 (0.0-0.4); EOSINOPHILS % 1.9 % (0.0-6.0); HEMATOCRIT 23.5 % (38.2-49.6); HEMOGLOBIN 8.1 g/dL (14.0-18.0); LYMPHOCYTES # (AUTO) 0.7 (1.0-3.2); LYMPHOCYTES % 10.1 % (18.0-39.1); MEAN CORPUSCULAR HEMOGLOBIN 33.8 pg (28-32); MEAN CORPUSCULAR HGB CONC 34.5 g/dL (31-35); MEAN CORPUSCULAR VOLUME 97.9 fL (81-99); MONOCYTES # (AUTO) 0.6 (0.2-0.8); MONOCYTES % 9.4 % (4.4-11.3); NEUTROPHILS # (AUTO) 5.3 (2.1-6.9); NEUTROPHILS % 77.8 % (38.7-80.0); PLATELET COUNT 173 x10e3/uL (140-360); RED CELL DISTRIBUTION WIDTH 15.7 % (11.7-14.4)
[2019-03-16] MEDS ORDERED: POTASSIUM CHLORIDE 20 MEQ TAB CR PO NR (15:31)
[2019-03-16] MEDS: AZITHROMYCIN 500MG/NS 250 ML 250 ML IV SCH (16:12)
[2019-03-17] VITALS (25 sets, daily range): BP systolic 115–157; BP diastolic 63–91
[2019-03-17] MEDS: CEFTRIAXONE SOD 1 GM/NS 50 ML 50 ML IV SCH ×2 (04:24→15:19)
[2019-03-17] MEDS: NYSTATIN 100,000 UNITS/GM CRM 30GM TUBE TOP SCH ×2 (08:29→16:32)
[2019-03-17] MEDS: FAMOTIDINE 20 MG/2 ML VIAL IV SCH ×2 (08:29→16:32)
[2019-03-17] MEDS: MUPIROCIN 2% OINT 22 GM TUBE TOP SCH (08:29)
[2019-03-17] MEDS: THIAMINE HCL 100 MG TAB PO SCH (08:29)
[2019-03-17] MEDS: FOLIC ACID 1 MG TAB PO SCH ×2 (08:29→16:32)
[2019-03-17] MEDS: CHLORDIAZEPOXIDE HCL 25 MG CAP PO SCH ×2 (08:29→16:32)
[2019-03-17] MEDS: BALSAM PERU/CASTOR OIL 60 GM OINT...G. TP SCH (08:30)
[2019-03-17] MEDS: SODIUM CHLORIDE 0.9% 1000ML 1,000 ML IV SCH ×2 (12:14→23:53)
--- NOTE | 2019-03-17 13:03 | NUR ---
lady reynoso to be his w/ 2 other people arrived demanding information on pt. informed she is not on list authorized by pt to receive information, she requested to speak to decorating supervisor, caren called and cn notified. informed information can go through dr francois and we are following pt wishes. pt continues lethargic not really following what is going on at this time. vss and recorded.
--- NOTE | 2019-03-17 14:45 | NUR ---
Visit made by the Spiritual Care Department Pastoral Visitor, Estevan Hill. PV provided pastoral presence, prayer, communion, hospitality, and supportive listening. Pastoral Visitor informed pt/family of the scope of [employer] and availability. SAMANTHA COLE Youth Care Professional Spiritual Care Department O: [phone] Pager: [phone] ([phone] number calling from)
[2019-03-17] MEDS: AZITHROMYCIN 500MG/NS 250 ML 250 ML IV SCH (16:32)
[2019-03-18] VITALS (15 sets, daily range): BP systolic 128–146; BP diastolic 51–88
--- NOTE | 2019-03-18 00:54 | Diagnostic Imaging Report ---
EXAMINATION: CHEST SINGLE (PORTABLE) INDICATION: ^left pneumothorax and left sided pneumonia COMPARISON: Chest radiograph 03/15/2019, chest CT 03/12/2019 FINDINGS: AP view TUBES and LINES: Left chest tube unchanged.. LUNGS: Increased hazy opacification limits the left lower lung. Subtle hazy opacity along the right infrahilar lung. PLEURA: Possible small left pleural effusion. No pneumothorax identified. Persistent hyperdensity in the left lung apex is likely focal blood clot. HEART AND MEDIASTINUM: The cardiomediastinal silhouette is unremarkable. BONES AND SOFT TISSUES: Stable nondisplaced left lower rib fractures. Soft tissues are unremarkable. UPPER ABDOMEN: No free air under the diaphragm. IMPRESSION: Stable left chest tube, without obvious pneumothorax. Increased hazy opacity in the bilateral lower lungs may represent evolving contusions/edema and/or atelectasis. Possible small left pleural effusion. Persistent hyperdensity in the left lung apex is likely focal blood clot. Signed by: Luis Pinzon DO on 03/18/2019 12:50 AM
[2019-03-18] MEDS: CEFTRIAXONE SOD 1 GM/NS 50 ML 50 ML IV SCH (03:49)
[2019-03-18 05:15] LABS: BASOPHILS % 0.5 % (0.0-1.0); EOSINOPHILS # (AUTO) 0.2 (0.0-0.4); EOSINOPHILS % 2.1 % (0.0-6.0); HEMATOCRIT 28.8 % (38.2-49.6); HEMOGLOBIN 9.8 g/dL (14.0-18.0); LYMPHOCYTES # (AUTO) 0.8 (1.0-3.2); LYMPHOCYTES % 10.1 % (18.0-39.1); MEAN CORPUSCULAR HEMOGLOBIN 33.6 pg (28-32); MEAN CORPUSCULAR VOLUME 98.6 fL (81-99); MONOCYTES # (AUTO) 0.7 (0.2-0.8); MONOCYTES % 8.3 % (4.4-11.3); NEUTROPHILS # (AUTO) 6.3 (2.1-6.9); NEUTROPHILS % 78.4 % (38.7-80.0); PLATELET COUNT 188 x10e3/uL (140-360); RED BLOOD COUNT 2.92 x10e6/uL (4.3-5.7); RED CELL DISTRIBUTION WIDTH 15.3 % (11.7-14.4)
[2019-03-18 05:35] LABS: ALANINE AMINOTRANSFERASE 61 IU/L (0-55); ALBUMIN 2.1 g/dL (3.5-5.0); ALBUMIN/GLOBULIN RATIO 0.7 (0.8-2.0); ALKALINE PHOSPHATASE 53 IU/L (40-150); ANION GAP 11.6 mmol/L (8-16); BLOOD UREA NITROGEN 7 mg/dL (7-26); BUN/CREATININE RATIO 14 (6-25); CALCIUM 8.6 mg/dL (8.4-10.2); CARBON DIOXIDE 28 mmol/L (22-29); CHLORIDE 100 mmol/L (98-107); CREATINE KINASE 713 IU/L (30-200); CREATININE, SERUM 0.49 mg/dL (0.72-1.25); EST GLOMERULAR FILTRATION RATE > 60 ML/MIN (60-); GLUCOSE 118 mg/dL (74-118); POTASSIUM 3.6 mmol/L (3.5-5.1); SODIUM 136 mmol/L (136-145)
[2019-03-18] MEDS ORDERED: CHLORDIAZEPOXIDE HCL 25 MG CAP PO PRN (08:30)
[2019-03-18] MEDS: MUPIROCIN 2% OINT 22 GM TUBE TOP SCH (09:00)
[2019-03-18] MEDS: BALSAM PERU/CASTOR OIL 60 GM OINT...G. TP SCH (09:00)
[2019-03-18] MEDS: THIAMINE HCL 100 MG TAB PO SCH (09:04)
[2019-03-18] MEDS: FOLIC ACID 1 MG TAB PO SCH (09:04)
[2019-03-18] MEDS: FAMOTIDINE 20 MG/2 ML VIAL IV SCH (09:04)
[2019-03-18 12:26] LABS: BODY FLUID TYPE SEE COMMENTS
[2019-03-18 12:28] LABS: RBC,BODY FLUID 1708 cells/uL; WBC,BODY FLUID 396 cells/uL
[2019-03-18 12:29] LABS: BASOPHILS,BODY FLUID 0 %; EOSINOPHILS,BODY FLUID 2 %; LYMPHOCYTES,BODY FLUID 12 %; MONO/MACROPHG,BODY FLUID 8 %
[2019-03-18 12:31] LABS: NEUTROPHILS,BODY FLUID 73 %; OTHER CELLS,BODY FLUID 5 %
[2019-03-18 12:34] LABS: BODY FLUID APPEARANCE CLOUDY; BODY FLUID COLOR YELLOW
[2019-03-18] MEDS: NYSTATIN 100,000 UNITS/GM CRM 30GM TUBE TOP SCH (13:00)
--- NOTE | 2019-03-18 13:17 | NUR ---
Dictated DC summary: [id number]
--- NOTE | 2019-03-18 14:00 | Discharge Summary ---
ADMIT DIAGNOSES: 1. Sepsis, secondary to left-sided pneumonia. 2. Left-sided pneumonia. 3. Left hemopneumothorax, secondary to displaced rib fractures. 4. Profound hyponatremia. 5. Altered mentation, secondary to hyponatremia. 6. Chronic alcoholism. 7. Rhabdomyolysis. 8. Acute renal failure, secondary to acute tubular necrosis. 9. Tobacco abuse. 10. Left 6th and 7th rib fractures (displaced). DISCHARGE DIAGNOSES: 1. Status post left tube thoracostomy placement because of left hemopneumothorax. 2. Left-sided pneumonia, resolving. 3. Acute renal failure, secondary to acute tubular necrosis, resolved. 4. Rhabdomyolysis, resolved. 5. Chronic alcoholism. 6. Profound hyponatremia, resolved. 7. Tobacco abuse. 8. Left 6th and 7th rib fracture (displaced). 9. Upper gastrointestinal bleeding. 10. Status post transfusion of 2 units of packed red blood cells. HOSPITAL COURSE: This is a 58-year-old white man, who has history of chronic alcoholism, hypertension. He was initially admitted to [facility] with diagnosis of sepsis, secondary to left-sided pneumonia. The patient was also found to have minimally displaced left-sided 6th and 7th rib fractures with subsequent left hemopneumothorax. On admission, the patient underwent left-sided chest tube thoracostomy placement by the emergency room physician because left hemopneumothorax. The patient tolerated the procedure well. The patient was also diagnosed with acute renal failure as well as rhabdomyolysis on this admission. The patient's creatine kinase did get as high as 28,283 on admission. On day of discharge was it was 713. The patient on admission, the patient was found to have a sodium of 107 and did improve slowly with the help of the Nephrology team. On day of discharge, the patient's potassium was 136. Also, the patient's BUN and creatinine on admission was 32 and 1.35 respectively. On day of discharge, the patient's BUN and creatinine was 7 and 0.49 respectively. Also, on admission the patient's AST and ALT were 705 and 112, respectively. On day of discharge, the patient's AST and ALT were 127 and 61 respectively. The patient was found to have an ammonia level as high as 80 during this hospitalization; on day of discharge it was 68. During this hospitalization, the patient's hemoglobin did get as low as 7.2 g/dL. Moreover, he was found to have Hemoccult-positive stools. The patient was transfused 2 units of packed red blood cells during this hospital stay. On discharge, the patient's hemoglobin was 9.8 g/dL. The patient's white blood cell count on admission was 11,200 with 85% segmenters; on day of discharge, white blood cell count was 8000 with 78% segmenters. The patient's pneumonia improved with intravenous antibiotics namely ceftriaxone, azithromycin. Decision was made to transfer the patient to a long-term acute care facility, where he could receive intravenous antibiotics for his pneumonia as well as daily physician management of his multiple medical comorbidities. Moreover, at this facility, the patient's left sided tube thoracostomy could be managed by the Pulmonary team. The patient was transferred from the [facility] Int[facility] to [facility]'s intensive care unit. The patient was also started on scheduled oral Librium to help offset acute alcohol withdrawal symptoms. The patient's condition on day of transfer was stable. TRANSFER MEDICATIONS: 1. Ceftriaxone 1 g intravenous every 12 hours. 2. Famotidine 20 mg intravenous every 12 hours. 3. Folic acid 1 mg b.i.d. 4. Thiamine 100 mg daily. 5. Nystatin cream to the inguinal area twice a day. 6. Librium 25 mg p.o. b.i.d. p.r.n. anxiety. 7. Ondansetron 4 mg intravenous every 4 hours p.r.n. nausea, vomiting. FOLLOWUP INSTRUCTIONS: As previous stated. The patient will transfer to a local long-term acute care facility namely [facility], where will be under the care of his attending, myself, Dr. Kamlesh Castro MD. At this facility, the patient be followed by Dr. Shelley and his drapery installer will manage his left-sided tube thoracostomy. The patient also be followed by Nephrology at this facility because of acute renal failure. Rhabdomyolysis and hyponatremia. The patient's oncology patient navigator is Dr. Mantilla. MD CHARLES ClintonO/DINAHL /[id number] cc: MD Lauri Huang MD
== END 2019-03-18 14:00 | DRG 871 ==
LOC: ER 08:17 → ERHOLD 17:23 → ICU 19:08
PROVIDERS: ADMIT Internal Medicine; ATTEND Internal Medicine
PROC: 0W9B30Z Drainage of Left Pleural Cavity with Drainage Device, Percutaneous Approach (ICD-10-PCS; principal; 2019-03-12)
PROC: 30233N1 Transfusion of Nonautologous Red Blood Cells into Peripheral Vein, Percutaneous Approach (ICD-10-PCS; 2019-03-15)
DX: A41.9 Sepsis, unspecified organism (principal); S27.2XXA Traumatic hemopneumothorax, initial encounter; N17.0 Acute kidney failure with tubular necrosis; S27.321A Contusion of lung, unilateral, initial encounter; S22.42XA Multiple fractures of ribs, left side, initial encounter for closed fracture; E87.1 Hypo-osmolality and hyponatremia; K92.2 Gastrointestinal hemorrhage, unspecified; M62.82 Rhabdomyolysis; W01.0XXA Fall on same level from slipping, tripping and stumbling without subsequent striking against object, initial encounter; Y92.015 Private garage of single-family (private) house as the place of occurrence of the external cause; F10.20 Alcohol dependence, uncomplicated; G62.1 Alcoholic polyneuropathy; F17.200 Nicotine dependence, unspecified, uncomplicated
CPT/HCPCS: 36415; 70450; 71045; 71260; 74177; 80048; 80053; 80307; 80320; 81001; 82140; 82150; 82270; 82550; 82553; 82607; 82945; 83605; 83615; 83735; 83880; 83930; 83935; 84157; 84300; 84484; 84550; 85025; 85610; 85730; 86850; 86900; 86920; 87070; 87205; 88112; 88305; 89051; 93005; 97139; 99284; J0456; J0696; J1990; J3411; J3480; J7030; J7050; J7070; P9016; Q9967

== ENCOUNTER → 2019-07-04 | Outpatient (CLI) | payer BC ==
--- NOTE | 2019-07-04 13:18 | Diagnostic Imaging Report ---
Examination: MRI SPINE CERVICAL WO CONTRAST History: Neck pain with numbness and weakness of the left hand. Comparison studies: None Technique: Sagittal T1, T2 and IR, axial T2 and axial gradient echo intravenous contrast: None Findings: Alignment: Normal lordosis. No scoliosis. Cervicomedullary junction: No abnormalities. Patent foramen magnum. Soft tissues: No T2 hyperintense inflammatory changes. Spinal cord: Normal in size with subtle increased signal in the cord at C3-C4 due to severe degenerative canal stenosis . Vertebrae: No fractures, infection or neoplasm. Degenerative changes: C1-C2: No abnormalities. C2-C3: Mild right neural foraminal narrowing due to bilateral uncovertebral and facet arthropathy. No left foraminal or canal stenosis. C3-C4: Central disc protrusion superimposed on diffuse disc osteophyte complex, mild ligamentum flavum thickening and bilateral uncovertebral and facet arthropathy result in moderate right and severe left neural foraminal narrowing and severe canal stenosis. C4-C5: Moderate bilateral facet and uncovertebral arthropathy. No foraminal or canal stenosis. C5-C6: Diffuse disc osteophyte complex, moderate ligamentum flavum thickening and severe bilateral uncovertebral and facet arthropathy result in severe bilateral neural foraminal narrowing and severe canal stenosis. C6-C7: Diffuse disc osteophyte complex and bilateral uncovertebral arthropathy result in mild bilateral neural foraminal narrowing. No canal stenosis. C7-T1: No abnormalities. IMPRESSION: 1. Degenerative changes from C2-C3 through C6-C7 with severe canal stenosis at C3-C4 and C5-C6 with increased cord signal due to compression at C3-C4. 2. Severe left foraminal narrowing at C3-C4 and severe bilateral foraminal narrowing at C5-C6 Signed by: Dr. Donna Gomes M.D. on 07/04/2019 1:15 PM
== END ==
LOC: MRI 08:31
PROVIDERS: ATTEND Internal Medicine
DX: M50.30 Other cervical disc degeneration, unspecified cervical region (principal); M54.12 Radiculopathy, cervical region
CPT/HCPCS: 72141